=== PATIENT | male | born 2005 | race Hispanic/Latino ===

== ENCOUNTER 2025-03-17 17:21 | Emergency (ER) | payer SELFPAY ==
[2025-03-17] MEDS ORDERED: TDAP (DIPHTH,PERTUSS(ACELL),TET VAC) 0.5 ML VIAL IMVAC ONE (19:04)
[2025-03-17] MEDS ORDERED: LIDOCAINE 1% 20 ML MDV ONE (19:04)
[2025-03-17] MEDS ORDERED: HYDROCODONE/APAP 7.5/325 MG TAB ONE (19:04)
--- NOTE | 2025-03-17 19:26 | EDPHYS ---
Physician Documentation [facility] Name: Pelon Lopes Age: 20 yrs Sex: Male : 2005 Arrival Date: 03/17/2025 Time: 17:21 Bed 11 Private MD: ED Physician Gordo Cochran HPI: 03/17 17:46 This 20 yrs old Male presents to ER via EMS with complaints of Fish hook in sb4 toe. 17:47 The patient or guardian reports the patient has a suspected foreign body, of the left sb4 2nd toe. The reported likely foreign body is a fishhook. Onset: The symptoms/episode began/occurred just prior to arrival. Current symptoms: pain, in the area of the foreign body. Treatment Prior to Arrival: tried to remove. The patient has not experienced similar symptoms in the past. Historical: - Allergies: 17:32 No Known Allergies; hb - Home Meds: 17:32 None [Active]; hb - PMHx: 17:32 None; hb - PSHx: 17:32 None; hb - Immunization history:: Adult Immunizations up to date. - Infectious Disease History:: Denies. - Social history:: Smoking status: Patient denies any tobacco usage or history of. ROS: 17:47 Constitutional: Negative for fever, chills, and weight loss, sb4 17:47 MS/extremity: Positive for per HPI, 17:47 All other systems are negative, Exam: 18:24 Constitutional: This is a well developed, well nourished patient who is awake, alert, sb4 and in no acute distress. Head/Face: Normocephalic, atraumatic. Eyes: Extra-ocular motions intact. Periorbital areas with no swelling, redness, or edema. ENT: Mucous membranes moist. Respiratory: No increased work of breathing, no retractions or nasal flaring. 18:24 Musculoskeletal/extremity: fishhook entrance plantar aspect of left 2nd toe through nail. Vital Signs: 17:31 BP 132 / 82; Pulse 69; Resp 16; Temp 98.1; Pulse Ox 100% on R/A; Weight 104.33 kg; hb Height 5 ft. 5 in. ; Pain 5/10; 20:00 BP 128 / 67; Pulse 65; Resp 16 S; Pulse Ox 100% on R/A; ha1 17:31 Body Mass Index 38.27 (104.33 kg, 165.1 cm) hb 17:31 Pain Scale: Adult hb Procedures: 19:27 Foreign Body Removal: a fishhook, from the left plantar aspect of left second toe, by sb4 using a hemostat, incising to remove, using lidocaine 1% without epinephrine to anesthesize the area, needle, Dressing: bandaid, The patient tolerated the removal well. MDM: 17:31 Medical Screening Exam initiated sb4 19:27 Data reviewed: vital signs, nurses notes, EMS record, radiologic studies, and as a sb4 result, I will discharge patient. Counseling: I had a detailed discussion with the patient and/or guardian regarding the historical points, exam findings, and any diagnostic results supporting the discharge/admit diagnosis, radiology results, the need for outpatient follow up, for definitive care, to return to the emergency department if symptoms worsen or persist or if there are any questions or concerns that arise at home. 03/17 17:34 Order name: Foot Left 3 View XRAY; Complete Time: 19:59 sb4 Administered Medications: 19:09 Drug: Boostrix Tdap IM 0.5 ml IM once; as a single dose Route: IM; Site: right deltoid; ha1 19:09 Drug: Hydrocodone-Acetaminophen PO (7.5 mg-325 mg) 1 tabs PO once Route: PO; ha1 20:00 Follow up: Response: No adverse reaction; Pain is decreased ha1 19:45 Drug: Lidocaine Infiltration (1 %) 20 ml 20 ml Infiltration once; to bedside Volume: 20 ha1 ml; Route: Infiltration; 19:50 Drug: Ciprofloxacin PO 500 mg PO once Route: PO; ha1 20:00 Follow up: Response: No adverse reaction ha1 Disposition: 03/18 19:22 Co-signature as Attending Physician, Gordo Cochran MD I agree with the assessment and sharonda plan of care. Disposition Summary: 03/17/25 19:26 Discharge Ordered Notes: Location: Home sb4 Problem: new sb4 Symptoms: are resolved sb4 Condition: Stable sb4 Diagnosis - Puncture wound with foreign body of left lesser toe(s) without damage to nail, sb4 initial encounter - fish hook Followup: sb4 - With: Private Physician - When: 1 week - Reason: Recheck today's complaints, Re-evaluation by your physician Discharge Instructions: - Discharge Summary Sheet sb4 - Puncture Wound, [id number] sb4 - [place] Removal sb4 Forms: - Antibiotic Education sb4 - Patient Portal Instructions sb4 - Leadership Thank You Letter sb4 Prescriptions: - Cipro 500 mg Oral Tablet - take 1 tablet ORAL route every 12 hours for 7 days; 14 tablet; Refills: 0, sb4 Product Selection Permitted Signatures: Dispatcher [employer] EDGordo Fitzgerald MD MD cha Baxter, Heather, RN RN Lauren Fairbanks RN RN ha1 Lurdes Johnson, PAAcacia PAAcacia sb4 Corrections: (The following items were deleted from the chart) 03/17 17:35 17:35 Foot Left 3 View+RAD.RAD.BRZ ordered. [facility] EDKY 18:24 17:47 The patient or guardian reports the patient has a suspected foreign body, of the sb4 left great toe, sb4
--- NOTE | 2025-03-17 19:26 | ER ---
Nurse's Notes [facility] Name: Pelon Lopes Age: 20 yrs Sex: Male : 2005 Arrival Date: 03/17/2025 Time: 17:21 Bed 11 Private MD: Diagnosis: Puncture wound with foreign body of left lesser toe(s) without damage to nail, initial encounter-fish hook Presentation: 03/17 17:31 Chief complaint: Fish hook in left great toe [place] in ocean. Coronavirus screen: At this time, the client does not indicate any symptoms associated with coronavirus-19. Ebola Screen: No symptoms or risks identified at this time. Initial Sepsis Screen: Does the patient meet any 2 criteria? No. Patient's initial sepsis screen is negative. Does the patient have a suspected source of infection? No. Patient's initial sepsis screen is negative. Risk Assessment: Do you want to hurt yourself or someone else? Patient reports no desire to harm self or others. Onset of symptoms was March 17, 2025. 17:31 Method Of Arrival: EMS: [facility] 17:31 Acuity: MARCE 4 Triage Assessment: 19:30 General: Appears uncomfortable, Behavior is cooperative. Pain: Complains of pain in ha1 plantar aspect of left second toe Pain currently is 8 out of 10 on a pain scale. Quality of pain is described as throbbing. Neuro: Level of Consciousness is awake, alert, obeys commands, Oriented to person, place, time, situation. Respiratory: Airway is patent Respiratory effort is even, unlabored, Respiratory pattern is regular, symmetrical. Historical: - Allergies: 17:32 No Known Allergies; hb - Home Meds: 17:32 None [Active]; hb - PMHx: 17:32 None; hb - PSHx: 17:32 None; hb - Immunization history:: Adult Immunizations up to date. - Infectious Disease History:: Denies. - Social history:: Smoking status: Patient denies any tobacco usage or history of. Screenin:05 Abuse screen: Denies threats or abuse. Denies injuries from another. Nutritional ha1 screening: No deficits noted. Tuberculosis screening: No symptoms or risk factors identified. 21:00 [facility] ED Fall Risk Assessment (Adult) History of falling in the last 3 months, ha1 including since admission No falls in past 3 months (0 pts) Confusion or Disorientation No (0 pts) Intoxicated or Sedated No (0 pts) Impaired Gait No (0 pts) Mobility Assist Device Used No (0 pt) Altered Elimination No (0 pt) Score/Fall Risk Level 0 - 2 = Low Risk Oriented to surroundings, Maintained a safe environment, Educated pt \T\ family on fall prevention, incl call for assistance when getting out of bed, Hourly rounding (assess needs \T\ fall precautionary measures) done. Assessment: 20:05 Reassessment: Patient and/or family updated on plan of care and expected duration. Pain ha1 level reassessed. Patient is alert, oriented x 3, equal unlabored respirations, skin warm/dry/pink. Vital Signs: 17:31 BP 132 / 82; Pulse 69; Resp 16; Temp 98.1; Pulse Ox 100% on R/A; Weight 104.33 kg; hb Height 5 ft. 5 in. ; Pain 5/10; 20:00 BP 128 / 67; Pulse 65; Resp 16 S; Pulse Ox 100% on R/A; ha1 17:31 Body Mass Index 38.27 (104.33 kg, 165.1 cm) hb 17:31 Pain Scale: Adult hb ED Course: 17:31 Patient arrived in ED. hb 17:31 Lurdes Johnson PA-C is PHCP. sb4 17:31 Gordo Cochran MD is Attending Physician. sb4 17:32 Triage completed. hb 17:32 Arm band placed on. hb 18:42 Foot Left 3 View XRAY In Process Unspecified. EDMS 19:20 Patient has correct armband on for positive identification. Placed in gown. Bed in low ha1 position. Call light in reach. Side rails up X 1. Adult w/ patient. 19:20 Provided Education on: plan of care. ha1 20:00 No provider procedures requiring assistance completed. Patient did not have IV access ha1 during this emergency room visit. Administered Medications: 19:09 Drug: Boostrix Tdap IM 0.5 ml IM once; as a single dose Route: IM; Site: right deltoid; ha1 19:09 Drug: Hydrocodone-Acetaminophen PO (7.5 mg-325 mg) 1 tabs PO once Route: PO; ha1 20:00 Follow up: Response: No adverse reaction; Pain is decreased ha1 19:45 Drug: Lidocaine Infiltration (1 %) 20 ml 20 ml Infiltration once; to bedside Volume: 20 ha1 ml; Route: Infiltration; 19:50 Drug: Ciprofloxacin PO 500 mg PO once Route: PO; ha1 20:00 Follow up: Response: No adverse reaction ha1 Medication: 20:00 Vaccine Information Statement (VIS) provided today. Questions and/or concerns ha1 addressed. VIS edition date: March 18, 2025. Outcome: : Discharge ordered by MD. moran 20:05 Discharged to home ambulatory, with family, ha1 20:05 Condition: stable 20:05 Discharge instructions given to patient, family, Instructed on discharge instructions, follow up and referral plans. medication usage, Demonstrated understanding of instructions, follow-up care, medications, 20:06 Patient left the ED. ha1 Signatures: Dispatcher [employer] EDMS Ricarda Vargas RN RN Lauren Fairbanks RN RN ha1 Lurdes Johnson PA-C PA-C sb4 Corrections: (The following items were deleted from the chart) 03/18 07:54 03/17 21:00 BP 128 / 67; Pulse 65bpm; Resp 16bpm; Spontaneous; Pulse Ox 100% RA; ha1 ha1
[2025-03-17] MEDS ORDERED: CIPROFLOXACIN HCL 500 MG TAB ONE (19:43)
--- NOTE | 2025-03-17 19:55 | RAD REPORT ---
EXAMINATION: XR Foot Left 3 View CLINICAL INDICATION: Male, 20 years old. [facility] MAIN foreign body Bed Name: TECHNIQUE: 3 view radiographs of the left foot were obtained. COMPARISON: No prior exam. FINDINGS: No evidence of fracture or dislocation. Normal alignment. No evidence of arthropathy or oth er focal bone lesion. Soft tissues are unremarkable. No soft tissue swelling. No significant degenerative changes. IMPRESSION: No acute or significant abnormalities.
[2025-03-17 20:10] VITALS: BP 132/82; TEMP 98.1; O2SAT 100
== END 2025-03-17 20:06 | disposition home or self-care (01) ==
LOC: ER 17:21
DX: S91.145A Puncture wound with foreign body of left lesser toe(s) without damage to nail, initial encounter (principal)
CPT/HCPCS: 90715; 96372; 99284; J2003